=== PATIENT | male | born 1955 | race Caucasian/White ===

== ENCOUNTER → 2021-09-07 | Outpatient (CLI) | payer MEDICARE, OTHER ==
--- NOTE | 2021-09-07 10:54 | Diagnostic Imaging Report ---
INDICATION: Palpable lumps on the calf. FINDINGS: There is a nonspecific hypoechoic area along the distal left calf. The possibility of a lipoma cannot be excluded. No other discrete solid or cystic mass is appreciated. IMPRESSION: Questionable lipoma along the distal left calf. This is, however, nonspecific. This could be further characterized with MRI if clinically warranted. Dictated by: Dictated on workstation # [id number]
--- NOTE | 2021-09-07 13:38 | Diagnostic Imaging Report ---
INDICATION: BILATERAL LEG MASS TECHNIQUE: Multiple real time link scale sonographic images were obtained of the left leg. CORRELATION STUDY: None. FINDINGS: Ultrasound imaging of the soft tissues of the left leg, below the level of the popliteal fossa. Approximately 6 to 8 cm below the popliteal fossa, there is a subtle, slightly hypoechoic oval-shaped area present. This measures approximately 3.1 x 2.9 x 0.9 cm. No appreciable internal vascularity. No posterior acoustic shadowing. IMPRESSION: 1. Subtle questionable 3 cm hypoechoic soft tissue mass just below the skin surface at the posterior left leg, area of palpable interest, nonspecific may be reflective of small lipoma. Dictated by: Dictated on workstation # [id number]
== END ==
LOC: RAD 09:35
PROVIDERS: ATTEND Family Medicine
DX: M79.604 Pain in right leg (principal); M79.605 Pain in left leg; R22.43 Localized swelling, mass and lump, lower limb, bilateral
CPT/HCPCS: 76881

== ENCOUNTER 2022-05-31 09:14 | Emergency (ER) | payer MEDICARE, OTHER ==
[~2022-05-31] VITALS: Ht 178 cm; Wt 95.7 kg
--- NOTE | 2022-05-31 09:49 | ED Respiratory ---
General Chief Complaint: Cough/Cold/Flu Symptoms Stated Complaint: CHRONIC COUGH Source: patient Exam Limitations: no limitations History of Present Illness Date Seen by Provider: May 31, 2022 Time Seen by Provider: 09:49 Initial Comments Patient is a 66-year-old male who presents to the emergency room with a chief complaint of chronic, persistent cough over the last 3 weeks (but has been present for years prior). Patient states he is unable to sleep due to the cough. He has not taken anything routinely for the cough although he did take a dose of Robitussin yesterday. He has had evaluations by his primary care doctor. He had a prescription for Tessalon years ago that he states helped some he thinks. He did have a CAT scan of his chest with IV contrast about 2 weeks ago in [place]. He was told he had "small effusions". He has scheduled follow- up later in the month of June with a mold runner. He was given an inhaler by his primary care doctor. Former smoking history. He has been on Prevacid for years and has not changed this medication. Patient states that he felt like the cough started in worse after he cleaned out a truck bed that had rat manure in it. He states "low-grade" fever99.6. No congestion, runny nose or sore throat. No nausea vomiting or diarrhea. No black or bloody stools. Chronic urinary complaints due to enlarged prostate. No swelling in his legs or history of blood clots. No night sweats, weight loss or temp above 100.4. He is not short of breath. His states that he had a course of Zithromax in February which seem to help and is questioning if he can have more antibiotics. I did educate them that antibiotics themselves do not improve cough and if he had findings concerning for pneumonia on x-ray of course we would prescribe antibiotics but they would not be indicated for cough alone. Timing/Duration: other (3 weeks) Severity: moderate Modifying Factors: Improves With Other (Anoro inhaler) Associated Symptoms: cough Allergies and Home Medications Allergies Coded Allergies: No Known Drug Allergies (Unverified , 05/31/22) Patient Home Medication List Home Medication List Reviewed: Yes Review of Systems Review of Systems Constitutional: see HPI EENTM: no symptoms reported Respiratory: cough; No phlegm Cardiovascular: no symptoms reported Gastrointestinal: no symptoms reported Genitourinary: no symptoms reported Musculoskeletal: no symptoms reported Skin: no symptoms reported Psychiatric/Neurological: No Symptoms Reported All Other Systems Reviewed Negative Unless Noted: Yes Past Pzgzlbi-Fbveer-Uxubua Hx Patient Social History Tobacco Use?: No Use of E-Cig and/or Vaping dev: No Substance use?: No Alcohol Use?: No Pt feels they are or have been: No Immunizations Up To Date Influenza Vaccine Up-to-Date: No; Not Current First/Initial COVID19 Vaccinat: DECLINED Past Medical History Surgery/Hospitalization HX: GERD, CERVICAL/SPINAL STENOSIS, ENLARGED PROSTATE, CHRONIC MUSCLE PAIN, JOINT PAIN INCLUDING UPPER RIB AREA, SLEEP APNEA, MELANOMA- ALL INFORMATION TAKEN FROM PAPERWORK PRESENTED BY SPOUSE. GALLBLADDER, MULTIPLE ORTHOPEDIC SURGERIES, Physical Exam Vital Signs - First Documented Capillary Refill : Height: '" Weight: lbs. oz. kg; BMI Method: General Appearance: WD/WN, no apparent distress Eyes: Bilateral Eye Normal Inspection, Bilateral Eye PERRL, Bilateral Eye EOMI HEENT: PERRL/EOMI Neck: normal inspection Respiratory: lungs clear, normal breath sounds, no respiratory distress, no accessory muscle use, other (coarse dry cough; room air sats 96-97%; no increased work of breathing) Cardiovascular: regular rate, rhythm Extremities: normal range of motion, normal inspection Neurologic/Psychiatric: alert, normal mood/affect, oriented x 3 Skin: normal color, warm/dry Progress/Results/Core Measures Suspected Sepsis SIRS Temperature: Pulse: Respiratory Rate: Blood Pressure / Mean: Results/Orders My Orders Orders - LOUISE GREGORIO MD Chest Pa/Lat (2 View) (05/31/22 10:17) Benzonatate Capsule (Tessalon Perles) (05/31/22 10:17) Guaifenesin/Codeine Syrup (Robitussin Ac (05/31/22 10:17) Vital Signs/I&O 05/31/22 05/31/22 09:20 09:20 Temp 36.7 Pulse 81 Resp 20 B/P (MAP) 140/88 (105) Pulse Ox 96 O2 Delivery Room Air Room Air Capillary Refill : Diagnostic Imaging Diagonstic Imaging: Xray Plain Films/CT/US/NM/MRI: chest Comments [facility], [place] NAME: PILLO AG REC#: [id number] PT STATUS: REG ER : 1955 PHYSICIAN: LOUISE GREGORIO MD ADMIT DATE: 05/31/22/ER Draft Date of Exam:05/31/22 CHEST PA/LAT (2 VIEW) INDICATION: Chronic cough. EXAMINATION: PA and lateral chest. FINDINGS: There is a small left pleural effusion. The heart size and pulmonary vascularity are normal. The lungs are clear. IMPRESSION: Small left pleural effusion. Dictated on workstation # [id number] Dict: 05/31/22 1100 Trans: 05/31/22 1102 [id number] Interpreted by: YUSUF QUINTERO MD Electronically signed by: Departure Impression Primary Impression: Pleural effusion Additional Impression: Chronic cough Disposition: 01 HOME, SELF-CARE Condition: Stable Departure-Patient Inst. Decision time for Depature: 11:34 Referrals: PILLO ECHAVARRIA MD (PCP/Family) Primary Care Physician Patient Instructions: Pleural Effusion (DC) Add. Discharge Instructions: You need to keep your appointment with the mold runner as scheduled. Take the tessalon perles for cough as needed/directed. You can also take over the counter Robitussin for cough as directed on packaging. The cough likely will not go away until the source of the effusion is discovered and addressed. If you develop a fever over 100.4, shortness of breath, or any other emergent or concerning symptoms, please return to the Emergency Department for re- evaluation. Scripts Guaifenesin/Codeine (ROBITUSSIN AC (CODEINE) SYRUP) 10 Ml Syrp 10 ML PO Q6H PRN for cough, #120 ML Prov: LOUISE GREGORIO MD 05/31/22 Benzonatate (TESSALON PERLES) 100 Mg Capsule 200 MG PO Q8H, #30 CAP 1 Refill Prov: LOUISE GREGORIO MD 05/31/22 LOUISE GREGORIO MD May 31, 2022 09:49
[2022-05-31] MEDS ORDERED: BENZONATATE 100 MG (TESSALON) CAPSULE PO STA (10:17)
[2022-05-31] MEDS ORDERED: guaiFENesin/CODEINE (ROBITUSSIN AC) 10ML UDC PO STA (10:17)
--- NOTE | 2022-05-31 11:02 | Diagnostic Imaging Report ---
INDICATION: Chronic cough. EXAMINATION: PA and lateral chest. FINDINGS: There is a small left pleural effusion. The heart size and pulmonary vascularity are normal. The lungs are clear. IMPRESSION: Small left pleural effusion. Dictated by: Dictated on workstation # [id number]
[2022-05-31] MEDS ORDERED: BENZ100C18 PO (11:31)
[2022-05-31] MEDS ORDERED: GFCD10B PO (11:33)
[2022-05-31 11:39] VITALS: BP 127/99
== END 2022-05-31 11:39 | disposition home or self-care (01) ==
LOC: EDUNIT# 09:14 → ER 09:18
DX: J90 Pleural effusion, not elsewhere classified (principal); Z28.310 Unvaccinated for COVID-19
CPT/HCPCS: 71046